=== PATIENT | male | born 1965 | race Caucasian/White ===

== ENCOUNTER → 2023-07-22 10:54 | Outpatient (REF) | payer BC, SELFPAY | LOC: HWRAD 10:54 | PROVIDERS: ATTENDING PHYSICIAN Internal Medicine | DX: E06.3 Autoimmune thyroiditis (principal); Z86.39 Personal history of other endocrine, nutritional and metabolic disease | CPT/HCPCS: 76536 ==

== ENCOUNTER → 2023-09-01 14:06 | Outpatient (REF) | payer BC, SELFPAY | LOC: RCS 14:06 | PROVIDERS: ATTENDING PHYSICIAN Internal Medicine Cardiovascular Disease; FAMILY PHYSICIAN Internal Medicine | DX: R07.89 Other chest pain (principal) | CPT/HCPCS: 93306 ==

== ENCOUNTER → 2023-09-02 10:37 | Outpatient (REF) | payer BC, SELFPAY | LOC: RCS 10:37 | PROVIDERS: ATTENDING PHYSICIAN Internal Medicine Cardiovascular Disease; FAMILY PHYSICIAN Internal Medicine | DX: R07.89 Other chest pain (principal) | CPT/HCPCS: 93017 ==

== ENCOUNTER → 2024-04-19 13:10 | Outpatient (REF) | payer BC, SELFPAY | LOC: RAD 13:10 | PROVIDERS: ATTENDING PHYSICIAN Internal Medicine | DX: R07.89 Other chest pain (principal) | CPT/HCPCS: 71046 ==

== ENCOUNTER 2024-04-21 17:17 | Emergency (ER) | payer BC, SELFPAY ==
[2024-04-21 17:39] VITALS: BP 170/93
[2024-04-21 18:19] LABS: % Basophils 0.3 % (0-2); % Eosinophils 1.1 % (0-6); % Immature Granulocytes 0.4 % (0-0.5); % Lymphocytes 12.5 % (20.5-51.1); % Monocytes 8.7 % (1.7-9.3); Absolute Eosinophils 0.1 10^3/uL (0-0.7); Absolute Lymphocytes 1.3 10^3/uL (1.2-3.4); Absolute Monocytes 0.9 10^3/uL (0.1-0.6); Absolute Neutrophils 8.2 10^3/uL (1.4-6.5); Hematocrit 37.6 % (39.0-52.0); Hemoglobin 13.1 g/dL (13.0-18.0); Mean Corp Hgb Conc. 34.8 g/dL (33.0-37.0); Mean Corpuscular Volume 88.9 fL (80.0-94.0); Mean Platelet Volume 10.6 fL (7.4-10.4); Nucleated Red Blood Cells % 0 % (-); Platelet Count 205 10^3/uL (130-400); Red Blood Cell Count 4.23 10^6/uL (4.70-6.10); Red Cell Dist. Width 12.5 % (11.5-14.5); White Blood Cell Count 10.6 10^3/uL (4.8-10.8)
[2024-04-21 18:29] LABS: INR 1.03
[2024-04-21 18:30] LABS: APTT 27.7 Sec (23.4-35.0)
[2024-04-21 18:41] LABS: ALT (SGPT) 31 U/L (0-50); AST (SGOT) 28 U/L (17-59); Albumin 4.9 g/dl (3.5-5.0); Alkaline Phosphatase 119 U/L (38-126); Blood Urea Nitrogen 15 mg/dl (9-20); Calcium 9.7 mg/dl (8.4-10.2); Carbon Dioxide 21 mmol/L (22-30); Chloride 101 mmol/L (98-107); Glucose 98 mg/dl (70-99); Potassium 3.7 mmol/L (3.5-5.1); Sodium 137 mmol/L (135-145); Total Protein 7.7 g/dl (6.3-8.2); eGFR > 60.00
[2024-04-21 18:48] LABS: Troponin I < 0.012 ng/ml
[2024-04-21 21:48] VITALS: BP 144/78; BMI 31.5
--- NOTE | 2024-04-21 22:20 | ED.GENMED ---
History of Present Illness
General
Chief Complaint: Chest Pain
Source: patient
Exam Limitations: none
Time Seen by Provider: 04/21/24 22:09
Nursing documentation reviewed up to this point in time: agreed with
History of Present Illness
History of Present Illness:
Pleasant 59-year-old male presents with right chest wall pain that has been present for the last week. Patient was seen by his primary care provider and ordered an EKG and an x-ray. He states that both were normal. Patient had an outpatient CT
scan of the chest ordered. Today patient had bloody nasal discharge so he called his PCP office and they advised him to come into the emergency department. Patient states that he had similar pain a year ago but that was self-limited. Patient
follows with Dr. Mcfarlane, cardiology secondary to having a high calciums scan in the past. He has not had any formal cardiac history. Patient denies trauma to the area. He denies dyspnea on exertion.
Past History
Past History
ED Past Medical History: None
ED Past Surgical History: None
Social History
Tobacco: Non-smoker
Alcohol: None
Drug: None
Living: with family
Review of Systems
Review of Systems
Allergies reviewed?: Yes
All Other Systems: ROS reviewed and negative except as documented in HPI and ROS
Constitutional: Reports no symptoms
EENT: Reports no symptoms
Respiratory: Reports hemoptysis
Cardiac: Reports no symptoms
ABD/GI: Reports no symptoms
: Reports no symptoms
Musculoskeletal: Reports no symptoms
Skin: Reports no symptoms
Neurological: Reports no symptoms
Endocrine: Reports no symptoms
Hematologic/Lymphatic: Reports no symptoms
Psychiatric: Reports anxiety
Phy Exam
General Physical Exam
General Presentation: well appearing and no apparent distress
General Skin: warm and dry
General Habitus: normal
General Mental: alert
General Hydration: appears well hydrated
ENT Exam
ENT Exam: EOMI, pharynx normal, neck supple and normocephalic
Eye Exam
Eye Exam: PERRL, cornea clear and conjunctiva normal
Cardiovascular Exam
Cardiovascular Exam: regular rate/rhythm, no edema, no murmur and normal peripheral pulses
Pulmonary Exam
Pulmonary Exam: lungs clear, no respiratory distress, no rales, no crackles, no rhonchi, no stridor, no wheezing and no cough
Gastrointestinal Exam
Gastrointestinal Exam: normal bowel sounds, non tender, soft, no organomegaly, no pulsatile mass and non distended
Neurological Exam
Neurological Exam: alert, oriented x3, no motor deficits and speech normal
Musculoskeletal Exam
Musculoskeletal Exam: full ROM and no edema
Skin Exam
Skin Exam: normal color, warm/dry, no rash and no petechia
Psychiatric Exam
Psychiatric Exam: normal mood/affect and anxious
Scores
Heart Score for Chest Pain Patients
STEMI patient?: No
History: Highly Suspicious
ECG: Normal
Age: >45 - <65 years
Risk Factors: >/= 3 Risk Factors or History of CAD
Troponin: </= Normal Limit
Heart Score for Chest Pain Patients: 5
Heart Score Risk: 20.3% MACE over next 6 weeks
Course
Orders/Labs/Results
Orders:
Orders
04/21/24 17:18
Electrocardiogram (*1) Urgent
Reason for Study: Shortness of Breath
EKG- Treatment ONCE
04/21/24 17:57
Complete Blood Count/With Diff Urgent
Comprehensive Metabolic Panel Urgent
PT/INR [Prothrombin Time] Urgent
PTT Urgent
Troponin I Urgent
04/21/24 22:02
Troponin I Urgent
04/21/24 22:20
CT Chest PE Study Urgent
Comment:
Reason For Exam: hemoptysis, right chest pain
Abnormal Lab Results
04/21/24
17:57
RBC 4.23 L 10^6/uL
(4.70-6.10)
Hct 37.6 L %
(39.0-52.0)
MPV 10.6 H fL
(7.4-10.4)
Absolute Neuts (auto) 8.2 H 10^3/uL
(1.4-6.5)
Absolute Monos (auto) 0.9 H 10^3/uL
(0.1-0.6)
Neutrophils % 77.0 H %
(42.2-75.2)
Lymphocytes % 12.5 L %
(20.5-51.1)
Carbon Dioxide 21 L mmol/L
(22-30)
04/21/24 17:57
04/21/24 17:57
Vital Signs
Initial and Last Documented VS:
Initial Vital Signs
Temp Pulse Resp BP Pulse Ox
98.4 F 66 20 170/93 98
04/21/24 17:39 04/21/24 17:39 04/21/24 17:39 04/21/24 17:39 04/21/24 17:39
Last Documented Vital Signs
Temp Pulse Resp BP Pulse Ox
98.4 F 62 20 144/78 99
04/21/24 17:39 04/21/24 23:15 04/21/24 23:15 04/21/24 21:48 04/21/24 23:15
*Critical Care Note
Total Time (30-74mins, 75-104mins- exclusive of procedures): Not Applicable
Update Note
Update Note:
Diagnostic Imaging Report
SignedOrder #:[id number]
Exams: CT Chest PE Study
CPT: 11528
PROCEDURE: CHEST CTA WITH IV CONTRAST
CLINICAL INDICATION: Right-sided chest pain. Hemoptysis.
TECHNIQUE: A CTA examination of the chest was performed following the intravenous administration of nonionic contrast material. Images were acquired with attention of the pulmonary arteries. Coronal and sagittal reformatted images were obtained. 3-D
reformatted images were obtained. Automatic exposure control radiation dose reduction technology was utilized.
COMPARISON: Comparison is made with a radiographic examination of the chest performed 04/19/[address] examination of the abdomen and pelvis performed 07/30/2022.
FINDINGS:
PULMONARY ARTERIES: There is no CTA evidence for central pulmonary arterial filling defect in either lung to suggest acute central pulmonary arterial embolus. There is no abnormal distention of the central pulmonary arteries to suggest pulmonary
arterial hypertension.
Branching Order Level of the Most Proximal Level of Pulmonary Embolus: None
MEDIASTINUM: The heart is mildly enlarged. There is no calcification in the aortic valve. There is no calcific atherosclerotic plaque in the coronary arteries or thoracic aorta. There is no pericardial effusion. There is no mediastinal, hilar,
supraclavicular, or axillary lymphadenopathy.
LUNGS: The central airways are patent without evidence for obstruction. There is no bronchiectasis. There is a band of subpleural scarring in the basilar segments of the left lower lobe which appears unchanged. There is a small band of scarring in
the medial segment of the right middle lobe which is unchanged. There is minimal scarring in the inferior segment of the lingula and in the subpleural basilar segments of the lower lobes of both lungs. There is no focal airspace opacity suspicious
for pneumonia. There is no pleural effusion or pneumothorax.
UPPER ABDOMEN: The spleen is moderately enlarged measuring 15.0 cm in length (previously 14.4 cm on 07/30/2022). There is no upper abdominal ascites or pneumoperitoneum. There is mild perinephric fat stranding around the upper poles of both kidneys.
SKELETON: There is mild to moderate multilevel discogenic degenerative disease in the mid lower thoracic spine with loss of intervertebral disc space height, small vertebral body endplate Schmorl nodes, small osteophytes, and mild discogenic
degenerative endplate sclerosis.
IMPRESSION:
1. Mild cardiomegaly.
2. Mild scarring in the basilar left lower lobe and medial right middle lobe.
3. Moderate splenomegaly.
Electronically signed by Vince Kramer MD, 04/21/2024 10:48 PM
[employer] Dose Report: Up-to-date CT equipment and radiation dose reduction techniques were employed. CTDIvol: 2.4 - 16.2 mGy. DLP: 620 mGy-cm.
Dictated By: Williams LARSEN,Vince Rosenberg.
ED Attending Note
-
Portions of this chart may have been created with voice recognition software.� Occasional wrong word or��sound alike� substitutions may have occurred due to the inherent limitations of voice recognition software.
Discharge Plan
Departure
Patient Disposition: Home (Routine Discharge)
Date of Disposition: 04/21/24
Time of Disposition: 23:09
Patient with high blood pressure during this ER visit?: No
Condition: Fair
Discharge Problem:
Pain, chest wall
Instructions: Chest Pain PCP Follow Up, BLOOD PRESSURE
Referrals:
Boogie Barba MD [Family Provider] -
Activity Restrictions/Additional Instructions:
Exams: CT Chest PE Study
CPT: 27061
PROCEDURE: CHEST CTA WITH IV CONTRAST
CLINICAL INDICATION: Right-sided chest pain. Hemoptysis.
TECHNIQUE: A CTA examination of the chest was performed following the intravenous administration of nonionic contrast material. Images were acquired with attention of the pulmonary arteries. Coronal and sagittal reformatted images were obtained. 3-D
reformatted images were obtained. Automatic exposure control radiation dose reduction technology was utilized.
COMPARISON: Comparison is made with a radiographic examination of the chest performed 04/19/[address] examination of the abdomen and pelvis performed 07/30/2022.
FINDINGS:
PULMONARY ARTERIES: There is no CTA evidence for central pulmonary arterial filling defect in either lung to suggest acute central pulmonary arterial embolus. There is no abnormal distention of the central pulmonary arteries to suggest pulmonary
arterial hypertension.
Branching Order Level of the Most Proximal Level of Pulmonary Embolus: None
MEDIASTINUM: The heart is mildly enlarged. There is no calcification in the aortic valve. There is no calcific atherosclerotic plaque in the coronary arteries or thoracic aorta. There is no pericardial effusion. There is no mediastinal, hilar,
supraclavicular, or axillary lymphadenopathy.
LUNGS: The central airways are patent without evidence for obstruction. There is no bronchiectasis. There is a band of subpleural scarring in the basilar segments of the left lower lobe which appears unchanged. There is a small band of scarring in
the medial segment of the right middle lobe which is unchanged. There is minimal scarring in the inferior segment of the lingula and in the subpleural basilar segments of the lower lobes of both lungs. There is no focal airspace opacity suspicious
for pneumonia. There is no pleural effusion or pneumothorax.
UPPER ABDOMEN: The spleen is moderately enlarged measuring 15.0 cm in length (previously 14.4 cm on 07/30/2022). There is no upper abdominal ascites or pneumoperitoneum. There is mild perinephric fat stranding around the upper poles of both kidneys.
SKELETON: There is mild to moderate multilevel discogenic degenerative disease in the mid lower thoracic spine with loss of intervertebral disc space height, small vertebral body endplate Schmorl nodes, small osteophytes, and mild discogenic
degenerative endplate sclerosis.
IMPRESSION:
1. Mild cardiomegaly.
2. Mild scarring in the basilar left lower lobe and medial right middle lobe.
3. Moderate splenomegaly.
It was a pleasure meeting you and taking part in your care. We hope for your continued healing and wellness.
Please read discharge instructions in their entirety. However, they are for general education and may not describe your exact diagnosis at discharge. Information on your ER visit and medical conditions were discussed with you along with appropriate
follow up information...
If indicated, please take your medications as instructed and indicated on discharge paperwork.
Please schedule a follow up appointment as directed. Call to schedule an appointment
Please return to the emergency department with ANY change in, persisting, or worsening of symptoms. If any of your symptoms do not improve, or persist, or become more severe within 6-12 hours, please return to the emergency department for further
care.
Please return to the emergency department if you develop a headache, neck pain/stiffness, fever greater than 100.4F, chest pain, shortness of breath, persistent nausea, vomiting, slurred speech, difficulty walking, numbness/tingling, weakness, signs
of infection or any other symptoms that are worrisome to you.
If you have any questions or concerns please do not hesitate to call the Hospital at or E-mail me directly at [email or web address]
Interventions
Interventions:
*Risk Screen - Suicide Last Done: 04/21/24 17:39
*General Assessment Last Done: 04/21/24 17:39
*Neglect/Abuse Screening Last Done: 04/21/24 21:48
*ED- Fall Risk Assessment Last Done: 04/21/24 21:48
*ED COVID-19 Vaccine History Last Done: 04/21/24 21:48
*Nursing Disposition Last Done: 04/21/24 23:15
ED- Cardiac Assessment Last Done: 04/21/24 22:17
Discharge Date and Time
Discharge Date/Time: 04/21/24 23:20
Print Language: TUNISIAN
[2024-04-21 22:38] LABS: Troponin I < 0.012 ng/ml
== END 2024-04-21 23:20 | disposition home or self-care (01) ==
LOC: EMR 17:17
PROVIDERS: Emergency Medicine; Student in an Organized Health Care Education/Training Program; EMERGENCY PHYSICIAN Student in an Organized Health Care Education/Training Program; FAMILY PHYSICIAN Internal Medicine; REFERRING PHYSICIAN Internal Medicine Cardiovascular Disease
DX: R07.89 Other chest pain (principal); I25.10 Atherosclerotic heart disease of native coronary artery without angina pectoris
CPT/HCPCS: 99284; 71275; 80053; 84484; 85025; 85610; 85730; 93005; Q9967